=== PATIENT | female | born 1995 | race Hispanic/Latino ===

== ENCOUNTER 2018-11-24 11:15 | Emergency (ER) | payer BC ==
[2018-11-24 11:22] VITALS: BMI 20.1
[2018-11-24] MEDS ORDERED: Iohexol 240 (50 ml) PO STA (13:12)
[2018-11-24] MEDS ORDERED: Iohexol 240 (50 ml) ONE (13:47)
[2018-11-24 14:11] LABS: BASO % 0.8 % (0.0-2.0); EOS % 0.6 % (0.0-4.0); HEMOGLOBIN 14.1 g/dL (12.0-16.0); LYMPH # 1.2 K/uL (1.0-4.3); LYMPH % 21.8 % (20.0-40.0); MEAN CELL VOLUME 100.3 fl (81.0-99.0); MEAN CORPUSCULAR HEMOGLOBIN 34.6 pg (27.0-31.0); MEAN CORPUSCULAR HGB CONC 34.5 g/dL (33.0-37.0); MEAN PLATELET VOLUME 7.3 fl (7.2-11.7); MONO # 0.5 K/uL (0.0-0.8); MONO % 9.2 % (0.0-10.0); NEUT # 3.7 K/uL (1.8-7.0); NEUT % 67.6 % (50.0-75.0); NRBC % 0.1 % (0.0-0.0); RBC 4.06 Mil/uL (3.80-5.20); RED CELL DISTRIBUTION WIDTH 12.1 % (11.5-14.5); WHITE BLOOD COUNT 5.4 K/uL (4.8-10.8)
[2018-11-24 14:15] LABS: SQUAMOUS EPITHIAL 4 /hpf (0-5); URINE BACTERIA OCC (<OCC); URINE BILIRUBIN NEGATIVE (NEGATIVE); URINE BLOOD SMALL (NEGATIVE); URINE CLARITY CLOUDY (Clear); URINE COLOR YELLOW (YELLOW); URINE GLUCOSE (UA) NEG (NEGATIVE); URINE LEUKOCYTE ESTERASE MOD Leu/uL (Negative); URINE PROTEIN NEGATIVE (NEGATIVE); URINE UROBILINOGEN 0.2-1.0 mg/dL (0.2-1.0)
[2018-11-24 14:19] LABS: PROTHROMBIN TIME 11.9 Seconds (9.8-13.1)
--- NOTE | 2018-11-24 14:19 | ED PDOC ---
HPI: Abdomen Time Seen by Provider: 11/24/18 12:56 Chief Complaint (Nursing): Female Genitourinary Chief Complaint (Provider): Rectal bleed History Per: Patient History/Exam Limitations: no limitations Onset/Duration Of Symptoms: Hrs Outside of [place] travel?: No Associated Symptoms: Other (gross blood per rectum) Additional History Per: Patient Additional Complaint(s): 23yo female, history of gastritis, comes to ER with reports of an episode of gross blood per rectum occurring 2 hours prior to arrival. She reports she has been having severe right lower quadrant abdominal pain and had associated diarrhea with gross red blood (patient unable to quantify how much blood present). She denies any such episodes prior. Patient states she went to an urgent care near her office and was sent here for further evaluation. Upon arrival to ER, patient reports spontaneous resolution of pain and bleeding. No history of abnormal vaginal bleeding as well. No additional complaints. Past Medical History Reviewed: Historical Data, Nursing Documentation, Vital Signs Vital Signs: Last Vital Signs Temp 97.5 F L 11/24/18 11:22 Pulse 110 H 11/24/18 11:22 Resp 18 11/24/18 11:22 BP 129/73 11/24/18 11:22 Pulse Ox 99 11/24/18 11:22 - Medical History PMH: Gastritis - Surgical History Surgical History: No Surg Hx - Family History Family History: States: No Known Family Hx - Home Medications Home Medications: Ambulatory Orders Medication Instructions Recorded Sulfamethoxazole/Trimethoprim 1 tab PO BID #10 tab 11/24/18 [Bactrim DS 800 mg-160 mg] - Allergies Allergies/Adverse Reactions: Allergies Allergy/AdvReac Type Severity Reaction Status Date / Time No Known Allergies Allergy Verified 11/24/18 12:16 Review of Systems ROS Statement: Except As Marked, All Systems Reviewed And Found Negative Constitutional: Negative for: Fever, Chills Cardiovascular: Negative for: Chest Pain Respiratory: Negative for: Shortness of Breath Gastrointestinal: Positive for: Abdominal Pain, Diarrhea (w/ bright red blood) Physical Exam - Reviewed Nursing Documentation Reviewed: Yes Vital Signs Reviewed: Yes - Physical Exam Appears: Positive for: Non-toxic, No Acute Distress Head Exam: Positive for: ATRAUMATIC, NORMAL INSPECTION, NORMOCEPHALIC Skin: Positive for: Normal Color Eye Exam: Positive for: Normal appearance Neck: Positive for: Supple Cardiovascular/Chest: Positive for: Regular Rate, Rhythm Respiratory: Positive for: Normal Breath Sounds Gastrointestinal/Abdominal: Positive for: Normal Exam, Soft. Negative for: Tenderness, Guarding, Rebound Back: Positive for: Normal Inspection Rectal: Positive for: Normal Exam, Other (no blood or stool in rectal vault). Negative for: Hemorrhoids, Mass, Tenderness Extremity: Positive for: Normal ROM. Negative for: Pedal Edema Neurologic/Psych: Positive for: Alert, Oriented - Laboratory Results Result Diagrams: 11/24/18 14:08 11/24/18 14:08 - ECG O2 Sat by Pulse Oximetry: 99 (RA) Pulse Ox Interpretation: Normal Medical Decision Making Medical Decision Makinyo female with episode of severe abdominal pain; + bright red blood per rectum Normal rectal exam Plan: -- Labs -- VBG -- CT Abdomen/Pelvis w/ PO & IV contrast -- Urinalysis 1647 CT Abdomen/Pelvis FINDINGS: LOWER THORAX: Unremarkable. LIVER: Unremarkable. No gross lesion or ductal dilatation. GALLBLADDER AND BILE DUCTS: Unremarkable. PANCREAS: Unremarkable. No gross lesion or ductal dilatation. SPLEEN: Unremarkable. ADRENALS: Unremarkable. No mass. KIDNEYS AND URETERS: Unremarkable. No hydronephrosis. No solid mass. VASCULATURE: Unremarkable. No aortic aneurysm. No aortic atherosclerotic calcification or mural plaque present. BOWEL: All bowel is distended with fluid and a bit of gas and oral contrast but not significantly so. No bowel obstruction evident. Large bowel is remarkable for collapse of the descending colon as well as the sigmoid segment. Gas in the lumen of the sigmoid segment suggests that there is mural thickening however and segmental colitis affecting the distal descending through sigmoid colon is questioned. No diverticular changes to suggest diverticulitis. More proximal volumen of the descending colon is not excluded. No abscess or free air appreciated. No gross pericolic reaction. Questionable irregular changes related to the rectum may indicate proctitis. APPENDIX: Normal appendix. PERITONEUM: Unremarkable. No free fluid. No free air. LYMPH NODES: Unremarkable. No enlarged lymph nodes. BLADDER: Marked urinary bladder distention with thin smooth wall but no luminal radiodense urolithiasis or mural thickening appreciated. REPRODUCTIVE: Unremarkable. BONES: No acute fracture. OTHER FINDINGS: None. IMPRESSION: 1. No CT evidence of appendicitis. 2. Overall pattern suspicious for distal descending and sigmoid colonic colitis which may affect more proximal segments of the descending colon as well. No abscess or free air. No diverticular changes. Limited proctitis is not excluded given mild irregularity related to the rectal wall and borderline perirectal reaction. The case Scribe Attestation: Documented by Sophia Durbin acting as a scribe for Rozina Antonio MD Provider Attestation: All medical record entries made by the Scribe were at my direction and personally dictated by me. I have reviewed the chart and agree that the record accurately reflects my personal performance of the history, physical exam, medical decision making, and the department course for this patient. I have also personally directed, reviewed, and agree with the discharge instructions and disposition. Time: 1746 -- Patient with a UTI. CT shows distal colitis. No signs of anemia. Will start patient on antibiotics. Patient given referral for Urologist and Piece Maker. Return parameters discussed. Scribe Attestation: Documented by Adalberto Gautam, acting as a scribe for Rozina Antonio MD. Provider Scribe Attestation: All medical record entries made by the Scribe were at my direction and personally dictated by me. I have reviewed the chart and agree that the record accurately reflects my personal performance of the history, physical exam, medical decision making, and the department course for this patient. I have also personally directed, reviewed, and agree with the discharge instructions and disposition. Disposition - Clinical Impression Clinical Impression: Urinary tract infection, Colitis - Patient ED Disposition Is Patient to be Admitted: No Counseled Patient/Family Regarding: Studies Performed, Diagnosis, Need For Followup - Disposition Referrals: David Mccray MD, PhD [Staff Provider] - Harsh Jay MD [Medical Doctor] - Disposition: Routine/Home Disposition Time: 17:46 Condition: IMPROVED Additional Instructions: Take antibiotics for urinary tract infection. Follow up with primary medical doctor as well as medical registrar and urologist. If you have worsened pain, bleeding, abdominal discomfort, dizziness, or other new symptoms. Return to the emergency department. Prescriptions: Sulfamethoxazole/Trimethoprim [Bactrim DS 800 mg-160 mg] 1 tab PO BID #10 tab Instructions: Urinary Tract Infections in Adults, Colitis (DC) Forms: [employer] (Faroese), [facility] School/Work Excuse Print Language: SOUTH AFRICAN
[2018-11-24 14:22] LABS: PARTIAL THROMBOPLASTIN TIME 32.3 Seconds (25.6-37.1)
[2018-11-24 14:24] LABS: ALB/GLOB RATIO 1.5 (1.0-2.1); ALBUMIN 4.5 g/dL (3.5-5.0); ALT/SGPT 30 U/L (9-52); AST/SGOT 36 U/L (14-36); BLOOD UREA NITROGEN 6 mg/dl (7-17); CALCIUM 9.8 mg/dL (8.4-10.2); GFR NON-AFRICAN AMERICAN > 60; LIPASE 95 U/L (23-300)
[2018-11-24 14:30] LABS: VENOUS BLOOD GAS BASE EXCESS 2.6 mmol/L (0.0-2.0); VENOUS BLOOD GAS PCO2 41 mmHg (40-60); VENOUS BLOOD GAS PO2 18 mm/Hg (30-55); VENOUS BLOOD PH 7.43 (7.32-7.43)
[2018-11-24] MEDS ORDERED: Iohexol 300 100 ML IJ ONE (15:20)
[2018-11-24] MEDS ORDERED: Sodium Chloride 0.9% 50 ML IV ONE (15:21)
[2018-11-24 15:35] VITALS: TEMP 98.6
--- NOTE | 2018-11-24 16:50 | CT ---
Date of service: 11/24/2018 PROCEDURE: CT Abdomen and Pelvis with contrast HISTORY: RLQ pain and gross blood per rectum COMPARISON: None. TECHNIQUE: Following oral and intravenous contrast administration, a CT examination of the abdomen and pelvis was performed from the domes of the diaphragms to the symphysis pubis with reformatted datasets provided not only axial but also sagittal and coronal series. Contrast dose: Omnipaque 300, 90 cc Radiation dose: Total exam DLP = 226.73 mGy-cm. This CT exam was performed using one or more of the following dose reduction techniques: Automated exposure control, adjustment of the mA and/or kV according to patient size, and/or use of iterative reconstruction technique. FINDINGS: LOWER THORAX: Unremarkable. LIVER: Unremarkable. No gross lesion or ductal dilatation. GALLBLADDER AND BILE DUCTS: Unremarkable. PANCREAS: Unremarkable. No gross lesion or ductal dilatation. SPLEEN: Unremarkable. ADRENALS: Unremarkable. No mass. KIDNEYS AND URETERS: Unremarkable. No hydronephrosis. No solid mass. VASCULATURE: Unremarkable. No aortic aneurysm. No aortic atherosclerotic calcification or mural plaque present. BOWEL: All bowel is distended with fluid and a bit of gas and oral contrast but not significantly so. No bowel obstruction evident. Large bowel is remarkable for collapse of the descending colon as well as the sigmoid segment. Gas in the lumen of the sigmoid segment suggests that there is mural thickening however and segmental colitis affecting the distal descending through sigmoid colon is questioned. No diverticular changes to suggest diverticulitis. More proximal volumen of the descending colon is not excluded. No abscess or free air appreciated. No gross pericolic reaction. Questionable irregular changes related to the rectum may indicate proctitis. APPENDIX: Normal appendix. PERITONEUM: Unremarkable. No free fluid. No free air. LYMPH NODES: Unremarkable. No enlarged lymph nodes. BLADDER: Marked urinary bladder distention with thin smooth wall but no luminal radiodense urolithiasis or mural thickening appreciated. REPRODUCTIVE: Unremarkable. BONES: No acute fracture. OTHER FINDINGS: None. IMPRESSION: 1. No CT evidence of appendicitis. 2. Overall pattern suspicious for distal descending and sigmoid colonic colitis which may affect more proximal segments of the descending colon as well. No abscess or free air. No diverticular changes. Limited proctitis is not excluded given mild irregularity related to the rectal wall and borderline perirectal reaction. The case
[2018-11-24 17:51] VITALS: BP 115/67; PULSE 77; RESP 16
[2018-11-26 22:26] VITALS: O2SAT 99
== END 2018-11-24 17:54 | disposition home or self-care (01) ==
LOC: H.ER 11:15
DX: N39.0 Urinary tract infection, site not specified (principal); K52.9 Noninfective gastroenteritis and colitis, unspecified
CPT/HCPCS: 74177; 80053; 81003; 81025; 82803; 83690; 85025; 85610; 85730; 99284; Q9966; Q9967